=== PATIENT | female | born 1985 | race Caucasian/White ===

== ENCOUNTER 2016-10-20 08:55 | Observation (INO) | payer OTHER ==
[~2016-10-20] VITALS: Ht 156 cm; Wt 97.5 kg
[~2016-10-20 08:55] MED LIST: METHY500 PO
[2016-10-20] MEDS ORDERED: PREN1TAB80 PO (08:56)
[2016-10-20 09:21] LABS: BASOPHILS % (AUTO) 0.4 % (0.0-2.0); EOSINOPHILS % (AUTO) 0.9 % (1.0-6.0); HEMATOCRIT 36.2 % (36-46); LYMPHOCYTES # (AUTO) 1.8 K/uL (1.0-4.8); MEAN CORPUSCULAR HEMOGLOBIN 27.9 pg (26.0-34.0); MEAN CORPUSCULAR HGB CONC 33.1 G/dL (31.0-37.0); MEAN CORPUSCULAR VOLUME 84 fL (80-100); MONOCYTES # (AUTO) 0.4 K/uL (0.1-1.0); MONOCYTES % (AUTO) 3.7 % (2.0-9.0); NEUTROPHILS # (AUTO) 8.7 K/uL (1.8-7.7); RED BLOOD CELL COUNT(AUTO) 4.29 MIL/uL (4.00-5.20)
[2016-10-20 09:30] LABS: ANION GAP 15 mmol/L (8-16); CALCIUM, TOTAL 9.1 mg/dL (8.8-10.5); CARBON DIOXIDE 21 mmol/L (22-29); CHLORIDE 101 mmol/L (98-107); CREATININE 0.79 mg/dL (0.60-1.30); GLOMERULAR FILTR. RATE CALC > 60 mL/min (>60); POTASSIUM 3.8 mmol/L (3.5-5.1); SODIUM SERUM 137 mmol/L (136-145); UREA NITROGEN, BLOOD 8 mg/dL (7-18)
[2016-10-20 09:35] LABS: ALANINE AMINOTRANSFERASE 14 U/L (12-78); ALBUMIN 2.4 g/dL (3.4-5.0); ASPARTATE AMINOTRANSFERASE 11 U/L (15-37); BILIRUBIN,TOTAL 0.2 mg/dL (0.1-1.0); TOTAL PROTEIN, SERUM 6.9 g/dL (6.4-8.2); URIC ACID 5.4 mg/dL (2.6-7.2)
== END 2016-10-20 11:25 | disposition home or self-care (01) ==
LOC: 4S 08:55
PROVIDERS: ADMIT Obstetrics & Gynecology; ATTEND Obstetrics & Gynecology
DX: O10.913 Unspecified pre-existing hypertension complicating pregnancy, third trimester (principal); O99.213 Obesity complicating pregnancy, third trimester; Z3A.39 39 weeks gestation of pregnancy
CPT/HCPCS: 36415; 59025; 80053; 84550; 85025; G0378

== ENCOUNTER 2016-10-27 08:05 | Inpatient (IN) | payer OTHER ==
[~2016-10-27] VITALS: Ht 156 cm; Wt 97.5 kg
[~2016-10-27 08:05] MED LIST changes: +KETOROLAC TROMETHAMINE 60 MG/2 ML VIAL IM ONE; +ONDANSETRON HCL 4 MG/2 ML VIAL IVP ONE; +OXYTOCIN 10 UNITS/ML VIAL IM ONE; +PHENYLEPHRINE HCL 10 MG/ML VIAL IVP ONE; +PREN1TAB80 PO
[2016-10-27] MEDS ORDERED: RINGERS SOLUTION,LACTATED 1,000 ML IV SCH (10:01)
[2016-10-27] MEDS ORDERED: RINGERS SOLUTION,LACTATED 1,000 ML IV PRN (10:01)
[2016-10-27] MEDS ORDERED: CITRIC ACID/SODIUM CITRATE 30 ML SOLUTION UDCUP PO PRN (10:15)
[2016-10-27] MEDS ORDERED: DINOPROSTONE 10 MG VAGINAL SUPPOSITORY VG ONE (10:15)
[2016-10-27] MEDS ORDERED: FentaNYL CITRATE-PF 100 MCG/2 ML VIAL IVP PRN ×5 (10:15→20:00)
[2016-10-27] MEDS ORDERED: METOCLOPRAMIDE HCL 5 MG/ML 2 ML VIAL IVP PRN (10:15)
[2016-10-27 10:27] VITALS: BP 109/58
[2016-10-27 10:47] LABS: BASOPHILS % (AUTO) 0.5 % (0.0-2.0); EOSINOPHILS % (AUTO) 0.8 % (1.0-6.0); HEMATOCRIT 34.3 % (36-46); HEMOGLOBIN 11.5 g/dL (12.0-16.0); LYMPHOCYTES % (AUTO) 17.9 % (22.0-44.0); MEAN CORPUSCULAR HEMOGLOBIN 28.3 pg (26.0-34.0); MEAN CORPUSCULAR HGB CONC 33.5 G/dL (31.0-37.0); MEAN CORPUSCULAR VOLUME 84 fL (80-100); MONOCYTES # (AUTO) 0.5 K/uL (0.1-1.0); MONOCYTES % (AUTO) 4.1 % (2.0-9.0); NEUTROPHILS # (AUTO) 8.8 K/uL (1.8-7.7); NEUTROPHILS % (AUTO) 76.7 % (40.0-70.0); RED BLOOD CELL COUNT(AUTO) 4.06 MIL/uL (4.00-5.20); RED CELL DISTRIBUTION WIDTH 15.8 % (11.5-14.5)
[2016-10-27 10:49] LABS: WHITE BLOOD COUNT (AUTO) 11.5 K/uL (4.5-11.0)
[2016-10-27] MEDS ORDERED: RINGERS SOLUTION,LACTATED 1,000 ML IV ONE (18:22)
[2016-10-27] MEDS ORDERED: METOCLOPRAMIDE HCL 5 MG/ML 2 ML VIAL IVP ONE (18:30)
[2016-10-27] MEDS ORDERED: CITRIC ACID/SODIUM CITRATE 30 ML SOLUTION UDCUP PO ONE (18:30)
[2016-10-27] MEDS ORDERED: CeFAZolin 2 GM/DEXTROSE 50 ML IV ONE (19:04)
[2016-10-27] MEDS ORDERED: FentaNYL CITRATE-PF 100 MCG/2 ML VIAL ONE (19:04)
[2016-10-27] MEDS ORDERED: MORPHINE SULFATE/PF 0.5 MG/ML 10 ML AMP ONE (19:04)
[2016-10-27] MEDS ORDERED: ONDANSETRON HCL 4 MG/2 ML VIAL IVP PRN ×2 (20:00)
[2016-10-27] MEDS ORDERED: MEPERIDINE-PF 25 MG/ML SYRINGE IVP PRN (20:00)
[2016-10-27] MEDS ORDERED: DiphenhydrAMINE HCL 50 MG/ML VIAL IVP PRN ×2 (20:00)
[2016-10-27] MEDS ORDERED: OXYGEN THERAPY IH SCH ×5 (20:00)
[2016-10-27] MEDS ORDERED: NALOXONE HCL 0.4 MG/ML VIAL IVP PRN (20:00)
[2016-10-27] MEDS ORDERED: NALBUPHINE HCL 10 MG/ML VIAL IVP PRN ×3 (20:00)
[2016-10-27] MEDS ORDERED: PROMETHAZINE HCL 12.5 MG in SODIUM CHLORIDE 0.9% 50 ML IV PRN (20:00)
[2016-10-27] MEDS ORDERED: ACETAMINOPHEN 1000 MG/ISO-OSM 100 ML IV ONE ×2 (20:00→21:10)
[2016-10-27] MEDS ORDERED: ACETAMINOPHEN/CODEINE 300-30 MG TABLET PO PRN (20:30)
[2016-10-27] MEDS ORDERED: LANOLIN 7 GM OINTMENT TP PRN (20:30)
[2016-10-27] MEDS ORDERED: DEXTROSE 5%-0.45% SODIUM CHL 1,000 ML IV ONE (21:10)
[2016-10-27] MEDS: DEXTROSE 5%-0.45% SODIUM CHL 1,000 ML IV SCH (21:14)
[2016-10-27] MEDS ORDERED: -PHARMACY NOTE- MISC ONE ×2 (22:15)
[2016-10-27] MEDS ORDERED: PNEUMOCOCCAL VACCINE POLYVALENT 0.5 ML VIAL [PPSV23] IM ONE (23:00)
[2016-10-28] MEDS: DEXTROSE 5%-0.45% SODIUM CHL 1,000 ML IV SCH ×3 (00:47→09:15)
[2016-10-28] MEDS ORDERED: ACETAMINOPHEN 1000 MG/ISO-OSM 100 ML IV SCH (05:00)
[2016-10-28] MEDS: MAGNESIUM HYDROXIDE SUSPENSION 30 ML UDCUP PO SCH ×2 (08:52→20:15)
[2016-10-28] MEDS: IBUPROFEN 800 MG TABLET PO SCH ×2 (14:43→20:15)
[2016-10-28] MEDS: ACETAMINOPHEN/CODEINE 300-30 MG TABLET PO PRN (20:16)
[2016-10-29] MEDS: IBUPROFEN 800 MG TABLET PO SCH ×4 (03:13→23:36)
[2016-10-29] MEDS: ACETAMINOPHEN/CODEINE 300-30 MG TABLET PO PRN ×2 (07:55→14:05)
[2016-10-29] MEDS: MAGNESIUM HYDROXIDE SUSPENSION 30 ML UDCUP PO SCH ×3 (09:00→21:00)
[2016-10-30] MEDS: ACETAMINOPHEN/CODEINE 300-30 MG TABLET PO PRN (08:24)
[2016-10-30] MEDS: IBUPROFEN 800 MG TABLET PO SCH (08:24)
[2016-10-30] MEDS ORDERED: IBUP-1547 PO (10:56)
[2016-10-30] MEDS ORDERED: IBUP-1681 PO (10:56)
[2016-10-30] MEDS ORDERED: ACET1TAB12 PO (11:01)
== END 2016-10-30 12:15 | disposition home or self-care (01) | DRG 766 ==
LOC: 4S 08:05 → OBSVTOIN 08:05 → 4S 22:11
PROVIDERS: ADMIT Obstetrics & Gynecology; ATTEND Obstetrics & Gynecology
PROC: 4A1HXCZ Monitoring of Products of Conception, Cardiac Rate, External Approach (ICD-10-PCS; principal; 2016-10-27)
PROC: 10D00Z1 Extraction of Products of Conception, Low, Open Approach (ICD-10-PCS; 2016-10-27)
PROC: 3E0234Z Introduction of Serum, Toxoid and Vaccine into Muscle, Percutaneous Approach (ICD-10-PCS; 2016-10-27)
DX: O69.0XX0 Labor and delivery complicated by prolapse of cord, not applicable or unspecified (principal); O76 Abnormality in fetal heart rate and rhythm complicating labor and delivery; O16.4 Unspecified maternal hypertension, complicating childbirth; O69.81X0 Labor and delivery complicated by cord around neck, without compression, not applicable or unspecified; Z3A.40 40 weeks gestation of pregnancy; Z37.0 Single live birth; Z23 Encounter for immunization
CPT/HCPCS: 86850; 86900; 86901; 90471; J0131; J0690; J1885; J2274; J2300; J2370; J2405; J2590; J2765; J3010; J7120